=== PATIENT | male | born 1990 | race Two or more races ===

== ENCOUNTER 2021-10-11 08:08 | Emergency (ER) | payer BC ==
[2021-10-11 08:44] VITALS: BP 139/92; PULSE 97; RESP 18; TEMP 98.3; BMI 28.1
[2021-10-11 10:33] LABS: URINE BARBITURATES NEGATIVE (NEGATIVE)
[2021-10-11 10:34] LABS: METHADONE, UR NEGATIVE (NEGATIVE); OPIATES, URI NEGATIVE (NEGATIVE); PHENCYCLIDINE,URINE NEGATIVE (NEGATIVE); URINE BENZODIAZEPINES NEGATIVE (NEGATIVE)
[2021-10-11 10:36] LABS: COCAINE, UR POSITIVE (NEGATIVE); URINE AMPHETAMINES POSITIVE (NEGATIVE)
[2021-10-11 11:17] LABS: SYPHILIS W/ RPR CONF NON-REACTIVE (NONREACTIVE)
[2021-10-11 11:46] LABS: HIV INTERPRETATION NEGATIVE (NEGATIVE)
== END 2021-10-11 09:55 | disposition home or self-care (01) ==
LOC: JER 08:08
DX: Z77.21 Contact with and (suspected) exposure to potentially hazardous body fluids (principal)
CPT/HCPCS: 36415; 80307; 86704; 86780; 86803; 87340; 87389; 87491; 87517; 87591; 99283-25